=== PATIENT | male | born 1960 | race Caucasian/White ===

== ENCOUNTER 2019-05-09 01:42 | Day surgery (SDC) | payer OTHER, SELFPAY ==
[2019-05-03 11:32] VITALS: BMI 31.9
--- NOTE | 2019-05-09 09:19 | ECG_ITS ---
Measurements Intervals [place] Rate: 66 P: 54 WA: 142 QRS: 28 QRSD: 94 T: 65 QT: 387 QTc: 407 Interpretive Statements SINUS RHYTHM NORMAL ECG Electronically Signed On 05-09-2019 11:42:10 FIRE ENGINE OPERATOR by Babak Bhatia D.O.
--- NOTE | 2019-05-09 10:31 | WPDANESEPPF ---
Anes - Initial Pre Proc Eval Procedure: Operation Date: 05/09/19 12:00 Proposed Procedures p Urolift - Gladys Conner MD Date/Time: 05/09/19 10:31 Surgeon: Gladys Conner MD Pre Op Diagnosis: BPH Patient Data Age: 59 Gender: M Height: 5 ft 8 in Weight: 95.25 kg Allergies Allergy/AdvReac Type Severity Reaction Status Date / Time niacin AdvReac DIZZY, Verified 05/03/19 11:33 REDNESS Home Medications Medication Instructions Recorded Confirmed Type gabapentin 900 mg PO QPM 04/07/19 05/03/19 History lisinopril 30 mg PO DAILY 04/07/19 05/03/19 History modafinil 200 mg PO DAILY 04/07/19 05/03/19 History bupropion HCl 300 mg PO DAILY 05/03/19 05/03/19 History duloxetine 60 mg PO DAILY 05/03/19 05/03/19 History methocarbamol 500 mg PO DAILY 05/03/19 05/03/19 History Patient hx anesthesia problems: none Family hx anesthesia problems: none PMFSH Past Medical History Medical History Anxiety Depression Hypertension Obesity BRIDGET (obstructive sleep apnea) Family History Family History Mother Family history of kidney disease Father Family history of heart disease in male family member before age 55 Patient's father is Other Cerebrovascular accident Diabetes mellitus Family history of arthritis Family history of cardiovascular disease Family history of malignant neoplasm Hypertension Social History Social History Smoking status: Never smoker Alcohol intake: current Anes - Eval Final PreProcedure Day of Procedure 05/09/19 10:31 Patient weight: obese Heart: regular rate and rhythm Lungs: clear to auscultation Airway: Mallampati scale class II Neurological: alert and oriented Last oral intake: >/= 8 hours ASA classification: III Emergent: no Anesthetic plan: proceed Anesthesia type and monitoring: general GIVS and standard monitoring Informed Consent: The patient's anesthetic plan and its attendant risks and benefits were discussed with the patient/family/POA. Questions were solicited and answers provided to the satisfaction of the patient/family/POA.
[2019-05-09 10:45] VITALS: BP 122/95; PULSE 74; RESP 18; TEMP 36.4; O2SAT 98
[2019-05-09] MEDS: LACTATED RINGERS 1,000 ML 30 ML IV CONT (10:45)
--- NOTE | 2019-05-09 11:52 | WPDHPUPDATE1 ---
History and Physical Update Update Date/Time: 05/09/19 11:52 History and Physical has been reviewed, including an updated exam of the patient. There are NO changes in the patient's condition. Risks, benefits, and alternatives have been discussed and questions answered. Patient agrees to proceed with procedure.
[2019-05-09] MEDS: ceFAZolin 2 GM/D5W 50 ML 2 GM/50 ML BAG IVPB (11:59)
[2019-05-09] MEDS: LIDOCAINE HCL 2% GEL UROJET 10 ML PKG MUCOUS MEM (12:17)
[2019-05-09 12:50] VITALS: BP 122/67; PULSE 67; RESP 16; TEMP 36.6; O2SAT 98
[2019-05-09 13:07] VITALS: BP 152/68; PULSE 88; RESP 20; O2SAT 98
--- NOTE | 2019-05-09 13:11 | SUR.PHASEII ---
1300- ambulated to bathroom. voided bloody urine. gait steady.
[2019-05-09 13:30] VITALS: BP 146/67; PULSE 77; RESP 16; O2SAT 98
--- NOTE | 2019-05-09 16:17 | OP_ITS ---
DATE OF PROCEDURE: 05/09/2019 PREOPERATIVE DIAGNOSIS: Benign prostatic hypertrophy with obstructive urinary symptoms. POSTOPERATIVE DIAGNOSIS: Benign prostatic hypertrophy with obstructive urinary symptoms. PROCEDURE PERFORMED: Prostatic urethral left. DESCRIPTION OF PROCEDURE: Informed consent was obtained, the patient was taken to the operating room, given preoperative IV antibiotics. He was induced anesthesia. He was prepped and draped in normal sterile fashion in the dorsal lithotomy position. We inserted lidocaine Uro-Jet. We then inserted a 20-Malian rigid cystoscope through the urethra into the bladder. Inspection of the bladder revealed to be moderately trabeculated. The prostate had bilobar prostatic hyperplasia. Cystoscope bridge was then replaced with UroLift delivery system. The first delivery site was the patient's left side, 2 cm distal to the bladder neck. We did attempt to fire device, however there was a pull-through and device was discarded.. We then inserted a new UroLift delivery bay, 2 cm distal to the bladder neck on the left side. The distal tip of the delivery bay was then angled laterally approximately 20 degrees to compress the lateral lobe. Trigger was pulled pulling a needle containing the implant to the prostate. The needle was retracted. This allowed the end of the implant to deliver the capsular surface of the prostate. The implant was then tensioned to assure capsular seeding and removal of the excess monofilament. The device was then angled back toward the midline slowly advancing entail verification the monofilament being centered in delivery bay. The urethra end piece was then affixed to the monofilament tailoring the size of the implant. Excess filament was then severed. Delivery device was then readvanced into the bladder. The delivery bay was then replaced for another device, which was placed on the right side, 2 cm distal to the bladder neck. At this point, we inspected with a visual obturator and the same procedure was then repeated with 2 additional implants just proximal to the verumontanum, one on the right and one on the left. At this point, cystoscopy revealed no significant persistent obstruction. As there was a continuous anterior channel through the prostatic urethra. There was good hemostasis. Approximately 100 cc was left in the baldder and the scope was removed. The patient awakened in the recovery stable condition. FLUIDS: Per anesthesia. COMPLICATIONS: None. ESTIMATED BLOOD LOSS: Minimal. FOLLOWUP: The patient will be discharged home today with plan for followup in 1 month. D I MT: Lucila RAINEY
== END 2019-05-09 14:01 | disposition home or self-care (01) ==
PROVIDERS: PCP Physician Assistant; Visit Provider Urology
PROC: 0T7D8DZ Dilation of Urethra with Intraluminal Device, Via Natural or Artificial Opening Endoscopic (ICD-10-PCS; CPT 52441; principal; 2019-05-09 12:00)
DX: N40.1 Benign prostatic hyperplasia with lower urinary tract symptoms (principal); N13.9 Obstructive and reflux uropathy, unspecified; I10 Essential (primary) hypertension; G47.33 Obstructive sleep apnea (adult) (pediatric); F41.8 Other specified anxiety disorders; E66.9 Obesity, unspecified; Z68.29 Body mass index [BMI] 29.0-29.9, adult
CPT/HCPCS: 52441; 52442 ×4; 93005; A9270; J0131; J0690; J2250; J2704; J3010; J7120; L8699

== ENCOUNTER 2020-11-03 16:40 | Emergency (ER) | payer OTHER, SELFPAY ==
--- NOTE | ~2020-11-03 | XR_ITS ---
EXAMINATION: XR hand RT min 3V DATE: 11/03/2020 17:15 INDICATION: Smashed right hand the third and fourth digits TECHNIQUE: Posteroanterior, oblique and lateral views of the right hand were obtained. COMPARISON: None. FINDINGS: Mildly comminuted minimally displaced tuft fracture at the right third distal phalanx. Alignment nazanin ins essentially anatomic. No other fractures identified. Polyarticular osteoarthritis, moderate sever ity with mild palmar subluxation at the second and third metacarpophalangeal joints and mild at the r adial aspect of the carpus and majority the remaining metacarpophalangeal and interphalangeal joints. IMPRESSION: 1. Minimally displaced comminuted fractures of the tuft of the right third distal phalanx. 2. Interval progression of mild to moderate polyarticular osteoarthritis greatest at the second and t hird metacarpophalangeal joints. Reviewed, dictated and finalized at location A. IMPRESSION: 1. Minimally displaced comminuted fractures of the tuft of the right third dist al phalanx. 2. Interval progression of mild to moderate polyarticular osteoarthritis greate st at the second and third metacarpophalangeal joints.
[2020-11-03 16:53] VITALS: BP 134/80; PULSE 85; RESP 16; TEMP 36.5; O2SAT 99
[2020-11-03 16:55] VITALS: BP 134/80; PULSE 85; RESP 16; TEMP 36.5; O2SAT 99
--- NOTE | 2020-11-03 17:10 | ED.WOUNDLAC ---
HPI - Wound/Laceration General Chief Complaint: Wound/Laceration Stated Complaint: Smashed finger Time Seen by Provider: 11/03/20 17:00 Source: patient and RN notes reviewed Mode of arrival: ambulatory Limitations: no limitations History of Present Illness HPI narrative: 60-year-old male presents with concern for injury to the third and fourth digit of the right hand. Reports last night around 11:00 he was carrying an amplifier, drinking alcohol, passed out in the amplifier plus his body weight fell on his hand. He reports lacerations, bruising, swelling to the distal third and fourth digits. Denies other injury. Is not sure of his last tetanus vaccination. He denies any head injury, current headache or vomiting. Related Data Home Medications Medication Instructions Recorded Confirmed bupropion HCl 300 mg PO DAILY 11/03/20 11/03/20 duloxetine 60 mg PO DAILY 11/03/20 11/03/20 gabapentin 300 mg PO DIRECTED 11/03/20 11/03/20 lisinopril 30 mg PO DAILY 11/03/20 11/03/20 mirabegron [Myrbetriq] 25 mg PO DAILY 11/03/20 11/03/20 modafinil 200 mg PO DAILY 11/03/20 11/03/20 rosuvastatin 20 mg PO DAILY 11/03/20 11/03/20 tadalafil 5 mg PO DAILY 11/03/20 11/03/20 Allergies Allergy/AdvReac Type Severity Reaction Status Date / Time niacin AdvReac DIZZY, Verified 11/03/20 16:52 REDNESS Review of Systems Review of Systems: CONSTITUTIONAL: Denies malaise, chills, sweats, or fever. CARDIOVASCULAR: Denies chest pain, palpitations, or edema. RESPIRATORY: Denies cough or dyspnea. SKIN: Reports lacerations to the third and fourth digits of the right hand MUSCULOSKELETAL: Reports pain, swelling, bruising to the third and fourth digits of the right hand NEUROLOGIC: Denies numbness, weakness All systems reviewed & are unremarkable except as noted in HPI and below PMFSH Past Medical History Medical History (Updated 11/03/20 @ 17:30 by Carmencita Elise NP) Anxiety Depression Hypertension Obesity BRIDGET (obstructive sleep apnea) Family History Family History Mother Family history of kidney disease Father Family history of heart disease in male family member before age 55 Patient's father is Other Cerebrovascular accident Diabetes mellitus Family history of arthritis Family history of cardiovascular disease Family history of malignant neoplasm Hypertension Social History Social History Smoking status: Never smoker Alcohol intake: current Comments At time of signature, agree with nursing past medical, surgical, social and family history. There is no relevant family history pertinent to the presenting complaint Exam Narrative: GENERAL: Well-appearing, well-nourished, and in no acute distress. HEAD: Normocephalic EYES: PERRLA, conjunctivae clear NECK: Supple. CHEST: Speaks in full sentences. No respiratory distress. HEART: Regular rate and rhythm. Normal and equal peripheral pulses. EXTREMITIES: Digits 4 and 5 of right hand have normal sensation. 4/5 strength with digit flexion, extension. Range of motion limited. Moderate distal edema, ecchymosis noted to digit 3, mild edema and ecchymosis noted to digit 4, tenderness noted to both distal digits. Normal digital cascade with flexion of fingers, median, ulnar and radial nerve intact.Can perform 'okay' sign. No scissoring. Normal thumb opposition. Good capillary refill and radial pulse. Distal capillary refill less than 3 seconds. SKIN: Warn, dry, intact, pink.. 1 cm laceration noted to the lateral fourth digit of the right hand, not approximated, scab forming, unable to pull wound edges together. Centimeter laceration noted to the palmar aspect of the third digit of the right hand, wound edges not approximated, unable to approximate wound edges. Neither wound has active bleeding, surrounding erythema, induration NEURO: Alert and oriented x
[2020-11-03] MEDS: TETANUS,DIPHTHERIA,AC PERTUSSIS ADULT (0.5 ML) BOOSTRIX IM (17:21)
== END 2020-11-03 17:46 | disposition home or self-care (01) ==
PROVIDERS: Emergency Provider Nurse Practitioner; PCP Physician Assistant
DX: S62.632A Displaced fracture of distal phalanx of right middle finger, initial encounter for closed fracture (principal); S67.192A Crushing injury of right middle finger, initial encounter; S67.194A Crushing injury of right ring finger, initial encounter; X58.XXXA Exposure to other specified factors, initial encounter; Z23 Encounter for immunization; I10 Essential (primary) hypertension; F41.9 Anxiety disorder, unspecified; F32.9 Major depressive disorder, single episode, unspecified; E66.9 Obesity, unspecified; Z68.33 Body mass index [BMI] 33.0-33.9, adult; G47.33 Obstructive sleep apnea (adult) (pediatric)
CPT/HCPCS: 29130; 73130; 90471; 90715; 99214; G0463

== ENCOUNTER → 2021-02-27 08:43 | Outpatient (CLI) | payer OTHER, SELFPAY ==
--- NOTE | ~2021-02-27 | MR_ITS ---
EXAMINATION: MR shoulder RT wo con DATE: 02/27/2021 09:23 INDICATION: Right shoulder pain TECHNIQUE: Magnetic resonance imaging (MRI) of the right shoulder was performed without intravenous c ontrast. Sequences included axial PD-weighted FS FSE, coronal oblique PD-weighted FS FSE, coronal obl ique T2-weighted FS FSE, sagittal PD-weighted FS FSE, and sagittal T1-weighted SE. COMPARISON: 11/13/2014 FINDINGS: Coracoacromial arch: The acromion undersurface is minimally curved in morphology (type I-II) with anterior downsloping. Ti ny anterior subacromial spur at the acromial insertion of the normal coracoacromial ligament. Severe acromioclavicular osteoarthritis with tiny inferiorly directed osteophytes which remains separate fro m the underlying supraspinatus muscle belly by thin intervening fat plane. Rotator cuff: Mild supraspinatus tendinopathy with small intrasubstance tear extending along the superior facet erickson tplate of the supraspinatus tendon and involving no greater than one third of the tendon thickness. T he infraspinatus and teres minor tendons are normal. Mild subscapularis tendinopathy without discrete tear. No asymmetric rotator cuff muscle atrophy. There is focal mild muscular edema along the anteri or margin of the supraspinatus at the level of the acromion. Biceps tendon, glenoid labrum and glenohumeral cartilage: Long head of the biceps tendon is normal. superior, anterior to posterior tear of the glenoid labrum (SLAP tear) extending from the 12:30 position anteriorly to the 11:00 position posteriorly. Small mar ginal osteophytes along the posterior and inferior glenoid with diminutive inferior labrum consistent with chronic degeneration. Minimal partial-thickness cartilage loss with smooth chondral surface lucille ng the superior glenoid. Fluid: Physiologic amount of fluid in the glenohumeral joint and biceps tendon sheath. No loose osteochondra l bodies. Small amount of fluid in the subacromial/subdeltoid bursa consistent with mild bursitis. Bones: Normal marrow signal with no edema, fracture or abnormal marrow replacing process. IMPRESSION: 1. Mild supraspinatus and subscapular tendinopathy with slight increase in size of a still small mild intrasubstance tear along the superior facet footplate of the supraspinatus tendon which continues t o involve less than one third of the tendon thickness. 2. Mild acromioclavicular osteoarthritis with SLAP tear at the superior right labrum and likely chron ic degeneration at the inferior labrum. 3. Severe acromioclavicular osteoarthritis with mild underlying subacromial/subdeltoid bursitis. Reviewed, dictated and finalized at location B. S STOCK ASSOCIATE IMPRESSION: 1. Mild supraspinatus and subscapular tendinopathy with slight increase in size of a still small mild intrasubstance tear along the superior facet footplate o f the supraspinatus tendon which continues to involve less than one third of th e tendon thickness. 2. Mild acromioclavicular osteoarthritis with SLAP tear at the superior right l abrum and likely chronic degeneration at the inferior labrum. 3. Severe acromioclavicular osteoarthritis with mild underlying subacromial/sub deltoid bursitis.
== END ==
PROVIDERS: PCP Physician Assistant
DX: M25.511 Pain in right shoulder (principal); M75.81 Other shoulder lesions, right shoulder; M19.011 Primary osteoarthritis, right shoulder; S43.431A Superior glenoid labrum lesion of right shoulder, initial encounter; M71.9 Bursopathy, unspecified
CPT/HCPCS: 73221